=== PATIENT | female | born 2000 | race Two or more races ===

== ENCOUNTER 2025-09-19 12:41 | Emergency (ER) | payer MEDICAID, SELFPAY ==
[2025-09-19 12:41] VITALS: BMI 38.0
[2025-09-19 12:54] VITALS: BP 129/76; PULSE 97; RESP 16; TEMP 36.9; O2SAT 99
--- NOTE | 2025-09-19 12:58 | XR_ITS ---
Examination: CT abdomen and pelvis without contrast. Coronal 3-D reconstructions. Sagittal 2-D reconstructions. Date and time of exam: September 19, 2025, 1800 hours INDICATIONS: Onset left leg pain today CTDI: vol (mGy): 15.1 DLP: (mGycm): 963 Technique: Axial images of the abdomen have been obtained, 3 mm slice thickness Intravenous contrast material has not been administered. Low dose protocols were performed. One or more of the following dose reduction techniques were used; automated exposure control, adjustment of the mA and/or KV according to patient size, use of iterative reconstruction technique. Findings: No visualized liver or splenic lesion No gallstones No pancreatic or adrenal mass 2 mm lower pole right renal calculus Mild to moderate left hydronephrosis 5 mm distal left ureteral calculus Aorta normal size Normal appendix 13 mm fat-containing umbilical hernia No diverticulitis No bladder mass Contracted urinary bladder Adequate bone density IMPRESSION: Mild to moderate left hydronephrosis secondary to 5 mm distal left ureteral calculus
--- NOTE | 2025-09-19 12:59 | PD.EDABDPN ---
ED Abdominal Pain RME/HPI General Chief Complaint: Abdominal Pain Stated complaint: left flank pain Time seen by provider: 09/19/25 12:51 Arrival date/time: 09/19/25 12:41 25-year-old female with no known medical history presents to the emergency room with a chief complaint of left flank pain and vomiting x 1 day Source: patient Mode of arrival: ambulatory Limitations: no limitations Related Data Home Medications ?Medication ?Instructions ?Recorded ?Confirmed prenat.vits,latosha,[id number] 1 tab PO QDAY 07/02/18 09/14/22 ( Vitamin tablet) Allergies Allergy/AdvReac Type Severity Reaction Status Date / Time No Known Allergies Allergy Verified 09/19/25 12:43 ED Exam General Limitations: Present no limitations Course Orders Category Date Time Status CT abdomen pelvis wo con Stat Exams 09/19/25 12:58 Ordered CBC Stat Lab 09/19/25 12:58 Ordered CMP [Comprehensive Metabolic Panel] Stat Lab 09/19/25 12:58 Ordered HCG Qualitative,Urine Stat Lab 09/19/25 12:58 Ordered Lipase Stat Lab 09/19/25 12:58 Ordered UA [Urinalysis] Stat Lab 09/19/25 12:58 Ordered Urine Culture Stat Lab 09/19/25 12:58 Ordered Vital Signs Vital signs: Vital Signs Temperature 98.4 F 09/19/25 12:54 Pulse Rate 97 09/19/25 12:54 Respiratory Rate 16 09/19/25 12:54 Blood Pressure 129/76 09/19/25 12:54 Pulse Oximetry (%) 99 09/19/25 12:54 Oxygen Delivery Method Room Air 09/19/25 12:54 Discharge Plan Prescriptions/Referrals Prescriptions/Med Rec: No Action Vitamin Tablet 1 tab PO QDAY Patient/Caregiver Discharge Instructions Print Language: Belarusian
[2025-09-19 13:46] LABS: Basophils # (Auto) 0.0 Thou/mm3 (0.0-0.2); Basophils % (Auto) 0 % (0-2.5); Eosinophils # (Auto) 0.0 Thou/mm3 (0.0-0.5); Eosinophils % (Auto) 0 % (0-10); Hematocrit 37.0 % (36.0-46.0); Hemoglobin 12.4 g/dL (12.0-16.0); Immature Granulocytes Auto 0.04 Thou/mm3 (0.00-0.00); Lymphocytes # (Auto) 1.1 Thou/mm3 (1.0-4.8); Lymphocytes % (Auto) 9 % (10-50); Mean Corpuscular HGB Conc 33.5 g/dl (31.0-37.0); Mean Corpuscular Hemoglobin 28.2 pg (25.0-35.0); Mean Corpuscular Volume 84 fL (80-100); Monocytes # (Auto) 0.4 Thou/mm3 (0.0-0.8); Monocytes % (Auto) 3 % (0-12); Neutrophils # (Auto) 11.3 Thou/mm3 (1.8-7.7); Neutrophils % (Auto) 88 % (37-80); Nucleated Red Blood Cell # 0.00 Thou/mm3 (0.00-0.00); Nucleated Red Blood Cell % 0 /100 WBC (0); Platelet Count 322 Thou/mm3 (140-440); RDW Standard Deviation 37.5 fL (36.4-46.3); Red Blood Count 4.40 Miln/mm3 (4.00-5.20); White Blood Count 12.9 Thou/mm3 (3.6-11.0)
[2025-09-19 14:29] LABS: Alanine Aminotransferase 9 U/L (10-49); Albumin, Serum 4.9 gm/dL (3.5-5.0); Albumin/Globulin Ratio 1.9 (1.2-2.2); Alkaline Phosphatase 77 U/L (46-116); Anion Gap 11 (7-16); Aspartate Amino Transferase 16 U/L (0-34); BUN/Creatinine Ratio 11 Ratio (12-20); Bilirubin,Total 0.5 mg/dL (0.3-1.2); Blood Urea Nitrogen 9 mg/dL (9-23); Calcium 9.2 mg/dL (8.3-10.6); Calcium (Corrected) 9.2 mg/dL (8.5-10.1); Carbon Dioxide 24.4 mMol/L (20.0-31.0); Chloride 103 mMol/L (98-107); Creatinine (Component) 0.8 mg/dL (0.6-1.3); Estimated Creatinine Clearance 118.5 mL/min (>60); Globulin 2.6 gm/dL (2.3-3.5); Glucose 128 mg/dL (74-106); Lipase 31 U/L (12-53); Osmolality,Calculated 276 (275-295); Potassium 3.8 mMol/L (3.4-5.1); Sodium 138 mMol/L (136-145); Total Protein 7.5 gm/dL (5.7-8.2); eGFR > 60 See Note
--- NOTE | 2025-09-19 16:35 | PD.EDRME ---
Rapid Medical Screening Exam RME Arrival date/time: 09/19/25 12:41 25-year-old female with no known medical history presents to the emergency room with a chief complaint of left flank pain and vomiting x 1 day I have greeted and performed a focused initial assessment of this patient. A comprehensive ED assessment and evaluation of the patient, analysis of all test results, and completion of the medical decision making process will be conducted by additional ED providers. Chief Complaint: Abdominal Pain Time Seen by Provider: 09/19/25 12:51 Vital signs: Vital Signs Temperature 98.4 F 09/19/25 12:54 Pulse Rate 97 09/19/25 12:54 Respiratory Rate 16 09/19/25 12:54 Blood Pressure 129/76 09/19/25 12:54 Pulse Oximetry (%) 99 09/19/25 12:54 Oxygen Delivery Method Room Air 09/19/25 12:54 Vital signs reviewed by provider: Yes Exam: Patient is complaining of 7 out of 10 left-sided CVA tenderness with palpation Clear bilateral lung sounds Clinical Impression: Renal calculi/pyelonephritis/UTI
[2025-09-19 16:57] LABS: HCG,Qualitative Serum Negative
[2025-09-19 17:07] LABS: HCG Qualitative,Urine Negative
[2025-09-19 17:08] LABS: Collection Type, Urine Clean Catch
[2025-09-19 17:19] LABS: Amorphous Crystals,Urine Present (Absent); Bilirubin,Urine Negative (Negative); Blood,Urine 2+ (Negative); Color,Urine Yellow (Lt Yel-Yel); Glucose, Urine Negative (Negative); Ketones,Urine Negative (Negative); Leukocyte Esterase,Urine Positive (Negative); Nitrite,Urine Negative (Negative); PH,Urine 5.5 (5.0-7.0); Protein,Urine Trace (Neg - Trace); RBC,Urine 4 /hpf (0-3); Specific Gravity,Urine 1.032 (1.001-1.035); Squamous Epithelial Cell,Urine 20 /hpf (0-5); Uric Acid Crystals,Urine 1+; Urobilinogen,Urine Negative mg/dL (0.0-1.0); WBC,Urine 3 /hpf (0-5)
[2025-09-19] MEDS: KETOROLAC INJ 60 MG/2 ML VIAL 30 MG IM (17:42)
[2025-09-19 17:47] LABS: Clarity,Urine Turbid (Clear/Hazy)
[2025-09-19 18:16] VITALS: BP 131/78; PULSE 100; RESP 18; TEMP 36.8; O2SAT 97
--- NOTE | 2025-09-19 18:36 | PD.EDRME ---
Rapid Medical Screening Exam RME Arrival date/time: 09/19/25 12:41 09/19/25 12:41 25-year-old female with no known medical history presents to the emergency room with a chief complaint of left flank pain and vomiting x 1 day I have greeted and performed a focused initial assessment of this patient. A comprehensive ED assessment and evaluation of the patient, analysis of all test results, and completion of the medical decision making process will be conducted by additional ED providers. Chief Complaint: Abdominal Pain Time Seen by Provider: 09/19/25 12:51 Vital signs: Vital Signs Temperature 98.4 F 09/19/25 12:54 Pulse Rate 97 09/19/25 12:54 Respiratory Rate 16 09/19/25 12:54 Blood Pressure 129/76 09/19/25 12:54 Pulse Oximetry (%) 99 09/19/25 12:54 Oxygen Delivery Method Room Air 09/19/25 12:54 RME Narrative: 09/19/25 12:41 25-year-old female with no known medical history presents to the emergency room with a chief complaint of left flank pain and vomiting x 1 day I have greeted and performed a focused initial assessment of this patient. A comprehensive ED assessment and evaluation of the patient, analysis of all test results, and completion of the medical decision making process will be conducted by additional ED providers. Exam: Patient is complaining of 7 out of 10 left-sided CVA tenderness with palpation Clear bilateral lung sounds Clinical Impression: Renal calculi/pyelonephritis/UTI
--- NOTE | 2025-09-19 19:44 | XR_ITS ---
Examination: Retroperitoneal ultrasound, complete Technique: Multiple high resolution grayscale images of the retroperitoneum obtained, including kidneys and bladder. Exam date and time: September 19, 2025, 2033 hours INDICATIONS: Onset flank pain today, CT examination today mild to moderate left hydronephrosis, 5 mm distal left ureteral calculus FINDINGS: Right kidney 11.5 cm renal cortex 1.1 cm Left kidney 12.9 cm renal cortex 1.1 cm Mild to moderate left hydronephrosis No renal calculi No bladder mass or bladder calculi Bladder prevoid on 271 cc IMPRESSION: Mild to moderate left hydronephrosis
[2025-09-19 19:59] VITALS: BP 124/81; PULSE 130; RESP 20; TEMP 37.3; O2SAT 100
--- NOTE | 2025-09-19 20:06 | EDNOTE_ITS ---
ED General RME/HPI General Chief complaint: Abdominal Pain Stated complaint: left flank pain Time Seen by Provider: 09/19/25 12:51 Arrival date/time: 09/19/25 12:41 RME / HPI RME / HPI narrative: 09/19/25 12:41 25-year-old female with no known medical history presents to the emergency room with a chief complaint of left flank pain and vomiting x 1 day. Patient denies having any history of nephrolithiasis in the past and denies any family history of nephrolithiasis. Patient states pain started earlier today and has progressively worsened. She denies having any fevers or chills at home but does state that she does have some dysuria with some burning sensation upon urination. Patient's been in the emergency room and received a dose of Toradol injection which improved her pain and she denies having any CVA tenderness at this point. On examination, patient is alert oriented x 3 and answering questions appropriately in Nauruan. Patient's tachycardic on heart auscultation with S1- S2 auscultated, lungs are clear to auscultation bilaterally, abdominal exam is largely unremarkable with no tenderness noted on palpation and there is no CVA tenderness. Patient's lower extremities unremarkable with no peripheral edema, clubbing or cyanosis. Differentials at this point include, urinary tract infection complicated with ureteral stones, distal measuring 5 mm as seen on CT acute cystitis, less likely be pyelonephritis as the patient does not have any fever or CVA tenderness at this time. #Complicated UTI #Nephrolithiasis #Morbid obesity As noted above CT shows a 5 mm left ureteral stone with noted obstruction, mild to moderate left hydronephrosis Plan: Will order ultrasound of bilateral kidneys status post Toradol to monitor for hydronephrosis improvement If there is still some hydronephrosis, will initiate 0.4 mg tamsulosin Patient appears clinically stable, will discharge with 7-day course of 1 double strength tablets twice daily on Bactrim for urine tract infection complicated by ureteral stone I have greeted and performed a focused initial assessment of this patient. A comprehensive ED assessment and evaluation of the patient, analysis of all test results, and completion of the medical decision making process will be conducted by additional ED providers. Exam: Patient is complaining of 7 out of 10 left-sided CVA tenderness with palpation Clear bilateral lung sounds Impression: Renal calculi/pyelonephritis/UTI Related Data Home Medications ?Medication ?Instructions ?Recorded ?Confirmed prenat.vits,latosha,[id number] 1 tab PO QDAY 07/02/18 09/14/22 ( Vitamin tablet) Previous Rx's ?Medication ?Instructions ?Recorded sulfamethoxazole 800 1 tab PO BID 7 days #14 tabs 09/19/25 mg-trimethoprim 160 mg tablet (Bactrim DS) tamsulosin 0.4 mg capsule 0.4 mg PO QDAY 7 days #7 cap s 09/19/25 Allergies Allergy/AdvReac Type Severity Reaction Status Date / Time No Known Allergies Allergy Verified 09/19/25 12:43 ED Exam Narrative Physical exam: Physical Exam: GENERAL: Awake, answers questions appropriately, appears stated age, morbidly obese HEENT: NC/AT. Moist mucosa. PERRLA/EOMI. CARDIO: Heart RRR, no obvious murmurs, no JVD. PULM: No coughing or visible SOB. Lungs CTA B/L. GI: Abdomen soft, NT/ND, +BS. SKIN/MSK/EXT: No wounds/discoloration/rashes/edema/amputations. +Pedal pulses present B/L. NEURO: Oriented x3, Moves extremities x4, no focal neurologic deficits noted Course Quality Measures VTE prophylaxis Orders Category Date Time Status CT abdomen pelvis wo con Stat Exams 09/19/25 12:58 Completed US renal BI Stat Exams 09/19/25 19:44 Completed CBC Stat Lab 09/19/25 13:21 Completed CMP [Comprehensive Metabolic Panel] Stat Lab 09/19/25 13:21 Completed HCG Qualitative,Urine Stat Lab 09/19/25 16:24 Completed HCG,Qualitative Serum Stat Lab 09/19/25 13:21 Completed Lipase Stat Lab 09/19/25 13:21 Completed UA [Urinalysis] Stat Lab 09/19/25 16:24 Completed Urine Culture Stat Lab 09/19/25 16:24 Received Ketorolac Inj [Toradol Inj] Med 09/19/25 17:20 Discontinued 30 mg IM X1 ONE Tamsulosin HCl [Flomax] Med 09/19/25 18:44 Discontinued 0.4 mg PO X1 ONE Vital Signs Vital signs: Vital Signs Temperature 98.4 F 09/19/25 12:54 Pulse Rate 97 09/19/25 12:54 Respiratory Rate 16 09/19/25 12:54 Blood Pressure 129/76 09/19/25 12:54 Pulse Oximetry (%) 99 09/19/25 12:54 Oxygen Delivery Method Room Air 09/19/25 12:54 Discharge Plan Plan Patient Disposition: HOME (Self Care) Discharge Disposition comment: Please follow-up with your PCP within 2 days for urine culture results Prescriptions/Referrals Prescriptions/Med Rec: New sulfamethoxazole-trimethoprim [Bactrim DS] 800-160 mg tablet 1 tab PO BID 7 Days Qty: 14 0RF tamsulosin 0.4 mg capsule 0.4 mg PO QDAY 7 Days Qty: 7 0RF No Action Vitamin Tablet 1 tab PO QDAY Referrals: Alden Hooks MD [Primary Care Provider, Family Practice] - In 1 week Problem List Clinical Impression: Left nephrolithiasis, Complicated UTI (urinary tract infection) Patient/Caregiver Discharge Instructions Print Language: Nauruan Stand Alone Forms: [employer] Award Info., Patient Portal Info Letter MDM Narrative MDM hospital course (for use when minimal MDM required): 09/19/25 12:41 25-year-old female with no known medical history presents to the emergency room with a chief complaint of left flank pain and vomiting x 1 day. Patient denies having any history of nephrolithiasis in the past and denies any family history of nephrolithiasis. Patient states pain started earlier today and has progressively worsened. She denies having any fevers or chills at home but does state that she does have some dysuria with some burning sensation upon urination. Patient's been in the emergency room and received a dose of Toradol injection which improved her pain and she denies having any CVA tenderness at this point. On examination, patient is alert oriented x 3 and answering questions appropriately in Nauruan. Patient's tachycardic on heart auscultation with S1- S2 auscultated, lungs are clear to auscultation bilaterally, abdominal exam is largely unremarkable with no tenderness noted on palpation and there is no CVA tenderness. Patient's lower extremities unremarkable with no peripheral edema, clubbing or cyanosis. Differentials at this point include, urinary tract infection complicated with ureteral stones, distal measuring 5 mm as seen on CT acute cystitis, less likely be pyelonephritis as the patient does not have any fever or CVA tenderness at this time. #Complicated UTI #Nephrolithiasis #Morbid obesity As noted above CT shows a 5 mm left ureteral stone with noted obstruction, mild to moderate left hydronephrosis Ultrasound shows persistent hydronephrosis, tamsulosin 0.4 mg given x 1 Plan: Will discharge with 7-day course of 0.4 mg tamsulosin Patient appears clinically stable, will discharge with 7-day course of 1 double strength tablets twice daily on Bactrim for urine tract infection complicated by ureteral stone I have greeted and performed a focused initial assessment of this patient. A comprehensive ED assessment and evaluation of the patient, analysis of all test results, and completion of the medical decision making process will be conducted by additional ED providers. Labs Lab(s) Interpretation(s): Leukocytosis, mild at 12.9 with left shift neutrophils 88%, likely secondary to complicated UTI, glucose 128 likely secondary to morbid obesity urine cultures show turbid urine with hematuria, positive leukocyte esterase but no bacteria noted likely secondary to ureteral stone, and possible underlying complicated UTI Imaging Imaging Interpretation(s): CT abdomen pelvis shows a mild to moderate left hydronephrosis secondary to 5 mm distal left ureteral calculus Ultrasound shows persistent mild to moderate left hydronephrosis but patient is urinating without any issues at this time, suspect hydronephrosis will resolve with time Medication Administration(s) Medication Administration History Discontinued Medications Ketorolac Tromethamine (Ketorolac Inj 60 Mg/2 Ml Vial) 30 mg IM X1 ONE Stop: 09/19/25 17:21 Last Admin: 09/19/25 17:42 Dose: 30 mg Documented By: THONG Tamsulosin HCl (Tamsulosin Hcl 0.4 Mg Capsule) 0.4 mg PO X1 ONE Stop: 09/19/25 18:45 Last Admin: 09/19/25 21:46 Dose: 0.4 mg Documented By: MAXINE
[2025-09-19] MEDS: TAMSULOSIN HCL 0.4 MG CAPSULE PO (21:46)
[2025-09-19 21:48] VITALS: BP 118/90; PULSE 98; RESP 17; TEMP 37; O2SAT 20
== END 2025-09-19 22:14 | disposition home or self-care (01) ==
PROVIDERS: Emergency Provider Nurse Practitioner Family; PCP Family Medicine
DX: N13.6 Pyonephrosis (principal)
CPT/HCPCS: 36415; 74176; 76770; 80053; 81001; 81025; 83690; 84703; 85025; 87086; 96372; 99284; J1885; A9270